=== PATIENT | female | born 1975 | race African-American/Black ===

== ENCOUNTER 2020-08-08 18:21 | Emergency (ER) | payer OTHER ==
[~2020-08-08] VITALS: Ht 162.6 cm; Wt 74.8 kg
[2020-08-08 18:24] VITALS: BP 168/107
== END 2020-08-08 19:19 | disposition home or self-care (01) ==
LOC: ER 18:21
DX: R25.2 Cramp and spasm (principal)

== ENCOUNTER 2020-08-08 22:55 | Emergency (ER) | payer OTHER ==
[~2020-08-08] VITALS: Ht 165.1 cm; Wt 74.8 kg
[2020-08-08 23:04] VITALS: BP 141/99
== END 2020-08-09 | disposition home or self-care (01) ==
LOC: ER 22:55
DX: S90.822A Blister (nonthermal), left foot, initial encounter (principal); S90.821A Blister (nonthermal), right foot, initial encounter; Z86.73 Personal history of transient ischemic attack (TIA), and cerebral infarction without residual deficits; Z86.2 Personal history of diseases of the blood and blood-forming organs and certain disorders involving the immune mechanism; X58.XXXA Exposure to other specified factors, initial encounter; Y93.89 Activity, other specified; Y92.89 Other specified places as the place of occurrence of the external cause; Y99.8 Other external cause status